=== PATIENT | female | born 1975 | race Caucasian/White ===

== ENCOUNTER → 2022-11-24 | Outpatient (CLI) | payer MEDICAID ==
--- NOTE | 2022-11-24 17:03 | P.HPBAR ---
Bariatric H&P - History & Physicial H&P Date: 11/24/22 History & Physicial: Visit/CC: Patient initial contact: Initial weight: Initial weight in pounds: Height: Initial BMI: Last weight: Current weight: Current weight in pounds: Current BMI: [place] body weight (based on NIH guidelines): Excess body weight loss: The patient is a 47 year-old F who presents for Bariatric Assessment. Has band from [facility] in 2007 and had band removal from intractable nausea and vomiting. Was 206 to 250 pounds. Now she is battling her weight. She has hard time losing weight. Recommend labs and EGD. She did liquid diet with weight regain. She is looking into the sleeve. No GERD. Get esophagram. EGD. Family her brother is getting the sleeve surgery. Her father had morbid obesity. Past Medical History Past Medical History: Osteoarthritis (OA) History of Any Multi-Drug Resistant Organisms: None Reported Past Surgical History: Section, Cholecystectomy, Tubal Ligation Additional Past Surgical History / Comment(s): lap band 2007, left knee torn miniscus gastric band removal 12-16 Past Anesthesia/Blood Transfusion Reactions: No Reported Reaction Past Psychological History: No Psychological Hx Reported Past Alcohol Use History: Occasional Past Drug Use History: None Reported - Past Family History Father Family Medical History: Cancer, Deep Vein Thrombosis (DVT) Additional Family Medical History / Comment(s): pancreatic cancer Bariatric Checklist Checklist: Plan: Checklist: EGD: 1. Hiatal hernia: 2. H. Pylori: HgbA1c: Vitamin D: Smoking: Never smoker Primary care physician referral: Arin Psychiatry clearance: Cardiology clearance: Sleep study: Diet journal: VTE risk score: VTE risk level: Rehab needs at discharge:
[2022-11-24 17:19] VITALS: BP 123/82; PULSE 74; RESP 16; TEMP 98
== END ==
LOC: BARWHC3 16:44
PROVIDERS: ATTEND Surgery Plastic and Reconstructive Surgery
DX: E66.01 Morbid (severe) obesity due to excess calories (principal); M19.90 Unspecified osteoarthritis, unspecified site
CPT/HCPCS: 99203